=== PATIENT | male | born 2000 | race Caucasian/White ===

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

== ENCOUNTER → 2022-02-15 15:10 | Outpatient (CLI) | payer OTHER, SELFPAY ==
--- NOTE | 2022-02-15 15:22 | ECG_ITS ---
APPROVED REPORT Exam: Resting ECG HR:67 bpm ECG Measurements Heart Rate 67 AXES MD 132 P 59 QRSd 95 QRS 89 QT 367 T 46 QTc 382 Conclusion SINUS RHYTHM WITH SINUS ARRHYTHMIA NORMAL ECG UNCONFIRMED REPORT Electronically signed by : Frank Prieto MD 02/15/2022 20:18:21
--- NOTE | 2022-02-15 15:31 | XR_ITS ---
FINAL REPORT CLINICAL HISTORY: foot pain FINDINGS: LEFT CALCANEUS 2 views were obtained. There is no acute fracture or dislocation. The joint spaces are intact. The subtalar joint is negative. There is no soft tissue abnormality. IMPRESSION: No acute bony abnormality. Reviewed, Interpreted and Dictated by Pedro Soriano MD Transcribed by Swetha Luna Authenticated and [facility]
--- NOTE | 2022-02-15 15:31 | XR_ITS ---
FINAL REPORT CLINICAL HISTORY: foot pain FINDINGS: LEFT FOOT Three views of the left foot demonstrate no acute fracture or dislocation. There are postoperative changes from fusion of the 1st tarsal metatarsal joint. The hardware appears unremarkable. The joint spaces are preserved. The soft tissues are unremarkable. IMPRESSION: Postoperative change as above with no acute bony abnormality. Reviewed, Interpreted and Dictated by Pedro Soriano MD Transcribed by Swetha Luna Authenticated and [facility]
--- NOTE | 2022-02-15 15:31 | XR_ITS ---
FINAL REPORT CLINICAL HISTORY: ankle pain COMPARISON: 07/19/2021 FINDINGS: LEFT ANKLE Three views of the left ankle were obtained. There is no acute fracture or dislocation. The joint spaces and mortise are intact. There is no soft tissue abnormality. IMPRESSION: No acute bony abnormality. Reviewed, Interpreted and Dictated by Pedro Soriano MD Transcribed by Swetha Luna Authenticated and [facility]
[2022-02-15 16:35] LABS: Basophils # 0.1 K/mm3 (0-0.2); Basophils % 3.6 % (0.1-2.0); Eosinophils # 0.3 K/mm3 (0.0-0.4); Eosinophils % 6.5 % (0.1-12.0); Hematocrit 50.4 % (42.0-52.0); Hemoglobin 15.9 g/dL (14.1-18.0); Lymphocytes # 1.1 K/mm3 (0.7-4.5); Lymphocytes % 26.1 % (10-50); Mean Corpuscular HGB Conc 31.5 g/dL (31.8-35.4); Mean Corpuscular Hemoglobin 33.8 pg (27.0-31.2); Mean Corpuscular Volume 107.5 fl (80-94); Mean Platelet Volume 8.6 fl (7.4-10.4); Monocytes # 0.4 K/mm3 (0.1-1.0); Monocytes % 10.4 % (1.7-9.3); Neutrophils # 2.2 K/mm3 (1.8-7.8); Neutrophils % 53.5 % (37.0-80.0); Platelet Count 297 K/mm3 (142-424); Red Blood Count 4.69 M/mm3 (4.60-6.20); Red Cell Distribution Width 12.6 % (11.5-17.5); White Blood Count 4.1 K/mm3 (4.5-13.0)
[2022-02-15 16:43] LABS: Alanine Aminotransferase 30 U/L (12-78); Albumin Level 4.8 g/dl (3.5-5.0); Albumin/Globulin Ratio 2.1 (1.1-1.8); Alkaline Phosphatase 58 U/L (38-126); Anion Gap 18.8 mEq/L (5-15); Aspartate Amino Transferase 34 U/L (17-59); Bilirubin,Total 0.7 mg/dl (0.2-1.3); Blood Urea Nitrogen 6 mg/dl (9-20); Calcium 9.7 mg/dl (8.4-10.2); Carbon Dioxide 29 mmol/L (22.0-30.0); Chloride 95 mmol/L (98-107); Estimated Glomerular Filt Rate 109 ml/min (>60); GFR (African American) 132 ML/MIN (>60); Globulin 2.3 g/dL (1.3-3.2); Glucose 89 mg/dl (74-100); Potassium 3.8 mmoL/L (3.5-5.1); Sodium 139 mmol/L (136-145); Total Protein,Serum 7.1 g/dl (6.3-8.2)
== END ==
PROVIDERS: PCP Family Medicine; Visit Provider Podiatrist
DX: Z01.818 Encounter for other preprocedural examination (principal); M79.672 Pain in left foot; M20.12 Hallux valgus (acquired), left foot
CPT/HCPCS: 36415; 73610; 73630; 73650; 80053; 85025; 93005

== ENCOUNTER 2022-02-24 14:00 | Outpatient (RCR) | payer OTHER, SELFPAY ==
--- NOTE | 2022-01-10 14:36 | HMH.OTOPEV ---
OT Inpatient Evaluation Rehab OT Outpatient Eval Start: 01/10/22 14:22 Freq: Status: Active Protocol: Document 01/10/22 14:22 RMARSHALL (Rec: 01/10/22 14:[id number] E-signed By Do Sage, OT Outpatient Therapy Subjective History Subjective History Pt is a 21 year old male who reports to therapy for initial evaluation to right small finger. On 10/15/21 pt punched a wall resulting in a 5th MC fx (boxer's fx). Pt required an open reduction, percutaneous pinning right fifth metacarpal at [facility] in October. Pt had his pin removed on 12/21/21 and then he had a follow up with [facility] ortho who referred pt to OT. Pt demonstrates with significant decline in AROM of right small finger; specifically at MP joint. Pt also demonstrates with decreased coater strength and finger strength at right side. However, pt reports 0/10 pain at all times. Pt is right hand dominant. Pt will continue to be seen in order to address all deficits. STG R small finger AROM MP flex: 65 degrees MP Ext: -20 degrees PIP Flex: 90 degrees DIP flex: 65 degrees LTG R small finger AROM MP flex: 85 degrees MP Ext: -10 degrees PIP Flex: 100 degrees DIP flex: 80 degrees STG R hand coater strength: 60 lbs LTG R hand coater strength: 80 lbs Chief Complaint Stiff,Weakness,Decreased Audiologist Strength Symptoms Aggravated By Physical Activity,Lifting Prior Functional Limitations None Current Functional Limitations Reaching,Lifting,Housework, Sleeping Level of pain today (0-10) 0 Pain scale - at its best (0-10) 0 Pain scale - at its worst (0-10) 0 Wrist/Hand Eval Finger Range of Motion
--- NOTE | 2022-02-09 15:24 | HMH.OTOPEV ---
OT Inpatient Evaluation Rehab OT Outpatient Eval Start: 01/10/22 14:22 Freq: Status: Active Protocol: Document 01/10/22 14:22 RMARSHALL (Rec: [facility]/10/22 14:[id number] E-signed By Do Sage, OT Outpatient Therapy Subjective History Subjective History Pt is a 21 year old male who reports to therapy for initial evaluation to right small finger. On 10/15/21 pt punched a wall resulting in a 5th MC fx (boxer's fx). Pt required an open reduction, percutaneous pinning right fifth metacarpal at [facility] in October. Pt had his pin removed on 12/21/21 and then he had a follow up with [facility] ortho who referred pt to OT. Pt demonstrates with significant decline in AROM of right small finger; specifically at MP joint. Pt also demonstrates with decreased route aide strength and finger strength at right side. However, pt reports 0/10 pain at all times. Pt is right hand dominant. Pt will continue to be seen in order to address all deficits. STG R small finger AROM MP flex: 65 degrees MP Ext: -20 degrees PIP Flex: 90 degrees DIP flex: 65 degrees LTG R small finger AROM MP flex: 85 degrees MP Ext: -10 degrees PIP Flex: 100 degrees DIP flex: 80 degrees STG R hand route aide strength: 60 lbs LTG R hand route aide strength: 80 lbs Chief Complaint Stiff,Weakness,Decreased Policy Writer Sales Strength Symptoms Aggravated By Physical Activity,Lifting Prior Functional Limitations None Current Functional Limitations Reaching,Lifting,Housework, Sleeping Level of pain today (0-10) 0 Pain scale - at its best (0-10) 0 Pain scale - at its worst (0-10) 0 Wrist/Hand Eval Finger Range of Motion
== END 2022-02-24 14:05 | disposition home or self-care (01) ==
LOC: OT 14:00
PROVIDERS: PCP Family Medicine; Visit Provider Orthopaedic Surgery
DX: S62.336D Displaced fracture of neck of fifth metacarpal bone, right hand, subsequent encounter for fracture with routine healing (principal)
CPT/HCPCS: 97010; 97014; 97035; 97110; 97140; 97164; G0283

== ENCOUNTER 2022-03-02 07:29 | Day surgery (SDC) | payer OTHER, SELFPAY ==
[2022-03-02] VITALS (12 sets, daily range): BP systolic 115–147; BP diastolic 64–88; PULSE 74–89; RESP 12–18; TEMP 36.6–43; O2SAT 95–100; BMI 47.2
--- NOTE | 2022-03-02 | XR_ITS ---
FINAL REPORT CLINICAL HISTORY: lt foot surgery in OR 1.02 fluoro time FINDINGS: FLUORO TIME PROCEDURE: Fluoroscopy in the operating room. FINDINGS: Fluoroscopy time was provided by the radiology department for the clinical service. 2 films were obtained. Fluoroscopy exposure time: 1.02 minute IMPRESSION: See above Reviewed, Interpreted and Dictated by Jace Arias III, MD Transcribed by Swetha Luna Authenticated and [facility]
--- NOTE | 2022-03-02 08:45 | EXP.OP.NOTE ---
Date of procedure: 03/02/22 Pre-op Diagnosis:: Left hallux valgus Left pes planus Left posterior tibial tendonitis Left achilles tendonitis Post-op Diagnosis:: Same Procedure performed:: Left foot: hardware removal Tomasz ostetomy Modified Alvarado bunionectomy w/ 1st MPJ capsulotomy Synovectomy Rashid calcaneal osteotomy Gastroc recession Allograft Surgeon:: Shannon Mcleod DPM NURSING AGENCY MANAGER:: Juvenal Santa Anesthesia: GETA and regional (L pop nerve block) Estimated blood loss (mL): 10 Clinical Note:: Patient is a 21-year-old male with flatfoot deformity who had a left Lapidus bunionectomy with PT tendon debridement and repair, gastrocnemius recession on 08/07/2019. Patient had some hallux malleus and reports popping and scar tissue around the first MPJ. Previous treatment has consisted of surgery and conservative care. The patient has tried modification of shoe gear, taping, strapping, inserts, ice elevation, NSAIDs, diagnostic block. X-rays and CT scans show prior fusion site healed with no evidence of nonunion. After a long discussion with the patient in regards to the conservative versus surgical treatment for the bunion/flatfoot deformity, the patient has elected to proceed with surgery because they have failed conservative treatment and continue to have pain and worsening symptoms affecting daily activities. The patient has been instructed on the planned procedure, all risk versus benefits of the procedure to include bleeding, infection, nerve and blood vessel damage, need for further surgery, delay in healing of soft tissue or bone, failure of bones to heal, non-union, mal-union, prolonged pain and recovery, prolonged swelling, CRPS/RSD, DVT and anesthetic complications. No guarantees were given. All questions fully answered. The patient verbalized understanding and agreed to proceed with surgery. Written consent was obtained. Operative findings:: Flat deformity with equinus noted. Hardware intact to the left Lapidus bunionectomy site. First metatarsal cuneiform joint fused. No evidence of nonunion or infection. Screw holes debrided and backfilled with allograft. First MPJ had synovitis noted. There was an osteochondral defect noted to the first metatarsal head. Some significant scarring of the previous surgical site. Modifier: This case took approximately 30 minutes longer than normal due to scar tissue, synovitis warranting a more extensive debridement. Operative note:: On this date and time, the patient was deemed an appropriate surgical candidate. With informed consent signed, the patient was taken to the operating theater. The patient was positioned supine. General anesthesia was induced. Tourniquet was applied to the right thigh. The lower extremity was prepped and draped in normal sterile fashion. IV Ancef given. Left foot hardware removal, synovectomy: Attention was directed to the first ray where previous incision was noted and dissection was performed full-thickness to the level of the hardware overlying the first metatarsal cuneiform joint. A plate and 6 screws were removed in total without complication. The Lapidus bunionectomy site was evaluated and noted to be fused. No signs of infection. Synovitic tissue was debrided with 15 blade. A piece of the first metatarsal was removed and sent for pathology specimen. Wound was flushed with saline. Allograft was used to fill and the screw holes. Left Rashid calcaneal osteotomy: The tourniquet was inflated at 250 mmHg. Attention was directed to the lateral foot where the calcaneocuboid joint was mapped out under intraoperative fluoroscopy. The incision was made longitudinally superior but in line with the peroneal tendons. Dissection was carried through skin to subcutaneous tissue with care taken to maintain surgical hemostasis and safely retract neurovascular structures. The extensor digitorum brevis muscle belly was identified and reflected off the calcaneus superiorly. The peroneal tendons were iden
--- NOTE | 2022-03-02 10:15 | SUR.OPER ---
1013-family updated at this time
--- NOTE | 2022-03-02 11:06 | EXP.ANES.CKL ---
[facility] Disclaimer: The information contained in this section may have been updated after the patient was seen, as this information can be updated by other users. Medical History (Updated 03/02/22 @ 07:50 by Danilo Keyes RN) Foot fracture Hand fracture No significant past medical history Surgical History (Updated 03/02/22 @ 07:50 by Danilo Keyes RN) History of foot surgery History of hand surgery Family History (Updated 03/02/22 @ 07:51 by Danilo Keyes RN) Other No significant family history Social History (Updated 03/02/22 @ 07:52 by Danilo Keyes RN) Smoking Status: Current every day smoker tobacco type: e-cigarettes alcohol intake: never substance use type: denies use and marijuana current occupational status: employed and student Travel in the last 8 weeks: None household members: family housing: house number of children: 0 caffeine: Yes [facility] Anesthesia Checklist Patient Identification Patient Identification: Verbal (Name & ) Structural Data Admitted From: Home Planned Operative Procedure/s: orif l foot Consent for Planned Operative Procedure(s) Verified: Yes NPO Status Verified Time NPO: 00:00 Additional verifications Anesthesia Reactions: No Hx Blood Transfusions: No Blood Transfusion Reaction: No Airway Assessment C-Spine Mobility Assessed: Yes TMJ Mobility Assessed: Yes Dentition: Good Dentition Neurological Assessment Level of Consciousness: Awake, Alert and Appropriate Anesthesia Plan Anesthesia Risk discussed: Yes Anesthesia Plan: Verified ASA Class: II Anesthesia Type: General w/block
--- NOTE | 2022-03-02 12:28 | SUR.OPER ---
1227-family updated at this time
--- NOTE | 2022-03-02 12:30 | XR_ITS ---
FINAL REPORT CLINICAL HISTORY: Post op bunion HWR, flatfoot recon FINDINGS: LEFT FOOT Three views of the left foot were obtained. A splint obscures some of the detail. There are postoperative changes in the 1st proximal phalanx with a staple present. The soft tissues are unremarkable. IMPRESSION: Postoperative changes as above. Reviewed, Interpreted and Dictated by Jace Arias III, MD Transcribed by Swetha Luna Authenticated and . [facility]
--- NOTE | 2022-03-02 12:39 | P.PNANES_ITS ---
[facility] Anesthesia Record Part I Anesthesia Record I Intake, IV Amount: 1,400 Estimated blood loss (mL): 0 Urine output (mL): 0 Blood Pressure: 133/75 SaO2: 98 Pulse Rate: 87 Respiratory Rate: 12 Temperature: 99.5 F Patient is:: Awake and Stable Stable to PACU at:: 12:35
--- NOTE | 2022-03-02 13:19 | SUR.PHASEI ---
1318 radiology at bedside
--- NOTE | 2022-03-02 13:31 | SUR.PHASEI ---
1320 called and gave detailed report to Cinthya Calles RN 1325 transported via stretcher to post op. vital signs stable. denies pain at this time. left in stable condition with Colin Salvador RN at bedside.
--- NOTE | 2022-03-04 11:17 | EXP.ANES.II ---
[facility] Anesthesia Record Part II Anesthesia Record Part II Discharge Time: 13:05 Destination: Outpatient Procedures PACU nurse assessment reviewed?: Yes Patient Condition:: Good Anesthesia Complications:: None Swallowing reflex intact?: Yes Cyanosis?: No Blood Pressure: 118/66 Pulse Rate: 75 Temperature: 99 F Mental Status: Alert & Oriented Pain level:: 0 Nausea and/or vomitting:: None Intake, IV Amount: 2,000
[2022-03-04 11:18] VITALS: BP 118/66; PULSE 75; TEMP 37.2
== END 2022-03-02 13:56 | disposition home or self-care (01) ==
PROVIDERS: PCP Family Medicine; Visit Provider Podiatrist
PROC: (CPT 15275; principal; 2022-03-02 08:45)
DX: M21.612 Bunion of left foot (principal); M20.12 Hallux valgus (acquired), left foot; M76.62 Achilles tendinitis, left leg; M77.42 Metatarsalgia, left foot; M21.862 Other specified acquired deformities of left lower leg; M24.575 Contracture, left foot
CPT/HCPCS: 15275; 20680; 27687; 28300; 28298; 73620; 73630; 76000; 96374; C1762; C9399; J2405; Q4211

== ENCOUNTER → 2022-03-11 13:04 | Outpatient (CLI) | payer OTHER, SELFPAY ==
--- NOTE | 2022-03-11 13:06 | XR_ITS ---
FINAL REPORT CLINICAL HISTORY: rt hand fracture follow up COMPARISON: December 2021 FINDINGS: 3 views of the right hand were obtained. There has been interval further healing of the distal 5th metacarpal fracture. The joint spaces are intact. There is no soft tissue abnormality. IMPRESSION: Interval further healing of distal 5th metacarpal fracture. Reviewed, Interpreted and Dictated by Jace Arias III, MD Transcribed by Aj Mendez Authenticated and [facility]
== END ==
PROVIDERS: PCP Family Medicine; Visit Provider Orthopaedic Surgery
DX: S62.306A Unspecified fracture of fifth metacarpal bone, right hand, initial encounter for closed fracture (principal)
CPT/HCPCS: 73130

== ENCOUNTER → 2022-03-28 11:30 | Outpatient (CLI) | payer OTHER, SELFPAY ==
--- NOTE | 2022-03-28 11:34 | XR_ITS ---
FINAL REPORT CLINICAL HISTORY: post op COMPARISON: January and February of 2022 FINDINGS: 3 views of the left foot were obtained. There is no acute fracture or dislocation. There is postoperative change of the 1st proximal phalanx with a stable. There is postoperative change of the 1st and 2nd metatarsals and medial cuneiform. There is postoperative change of the distal calcaneus. IMPRESSION: Stable postoperative changes as above. Reviewed, Interpreted and Dictated by Jace Arias III, MD Transcribed by Aj Mendez Authenticated and [facility]
== END ==
PROVIDERS: PCP Family Medicine; Visit Provider Podiatrist
DX: M79.672 Pain in left foot (principal); M20.12 Hallux valgus (acquired), left foot; M21.42 Flat foot [pes planus] (acquired), left foot
CPT/HCPCS: 73630

== ENCOUNTER → 2022-04-22 13:59 | Outpatient (CLI) | payer OTHER, SELFPAY ==
--- NOTE | 2022-04-22 14:08 | XR_ITS ---
FINAL REPORT CLINICAL HISTORY: post op - weight bearing views COMPARISON: 03/28/2022 FINDINGS: LEFT FOOT Three views of the left foot demonstrate no acute fracture or dislocation. There are postoperative changes in the 1st metatarsal and 1st proximal phalanx as well as the distal calcaneus. The changes are visually stable. The joint spaces are preserved. The soft tissues are unremarkable. IMPRESSION: Postoperative changes which are visually stable. No acute bony abnormality. Reviewed, Interpreted and Dictated by Jace Arias III, MD Transcribed by Swetha Luna Authenticated and [facility]
== END ==
PROVIDERS: PCP Family Medicine; Visit Provider Podiatrist
DX: M20.12 Hallux valgus (acquired), left foot (principal); G89.18 Other acute postprocedural pain
CPT/HCPCS: 73630

== ENCOUNTER → 2022-05-30 15:35 | Outpatient (CLI) | payer OTHER, SELFPAY ==
--- NOTE | 2022-05-30 15:38 | XR_ITS ---
FINAL REPORT CLINICAL HISTORY: Foot Pain, sx feb 2022 COMPARISON: April 22, 2022 FINDINGS: 3 views of the left foot were obtained. There is no acute fracture or dislocation. There is postoperative change in the calcaneus and 1st proximal phalanx. There is postoperative change in the proximal 1st and 2nd metatarsals. There appears to be healing of the calcaneal osteotomy. IMPRESSION: Postoperative changes as above. Reviewed, Interpreted and Dictated by Jace Arias III, MD Transcribed by Aj Mendez Authenticated and [facility]
== END ==
PROVIDERS: PCP Family Medicine; Visit Provider Podiatrist
DX: M79.672 Pain in left foot (principal)
CPT/HCPCS: 73630

== ENCOUNTER 2023-06-26 15:31 | Outpatient (CLI) | payer OTHER, SELFPAY ==
--- NOTE | 2023-06-26 15:35 | XR_ITS ---
FINAL REPORT CLINICAL HISTORY: foot pain states having pain/ache in left foot FINDINGS: Left foot Three views were obtained. There is no acute fracture or dislocation. The joint spaces appear normal. There are postoperative changes in the distal 1st metatarsal, 1st proximal phalanx and calcaneus. IMPRESSION: Postsurgical changes without acute bony abnormality. Reviewed, Interpreted and Dictated by Jace Arias III, MD Transcribed by Judy Trejo Authenticated and [facility] [place] [place]
== END 2023-06-26 23:59 ==
LOC: RAD 15:32
PROVIDERS: PCP Physician Assistant; Visit Provider Podiatrist
DX: M79.672 Pain in left foot (principal)
CPT/HCPCS: 73630

== ENCOUNTER 2023-07-11 17:28 | Outpatient (CLI) | payer OTHER, SELFPAY ==
--- NOTE | 2023-07-11 17:33 | MR_ITS ---
FINAL REPORT CLINICAL HISTORY: Evaluate Plantar soft tissue mass FINDINGS: Multi planar MR imaging of the left foot was obtained with and without contrast. The Achilles tendon is intact. There is a marker over the clinical abnormality along the medial plantar aspect of the foot. 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 There is mild enhancement within the structure well seen on image 25 of series 10. Magnetic susceptibility artifact is seen at the 1st tarsometatarsal joint and proximal portion of the 1st proximal phalanx consistent with prior surgery. 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 Reviewed, Interpreted and Dictated by Maninder Welsh MD Transcribed by Judy Trejo Authenticated and [facility]
[2023-07-11] MEDS: SODIUM CHLORIDE 0.9% 10ML SYR (RAD ONLY) 10 ML IV (19:38)
[2023-07-11] MEDS: GADOTERIDOL INJ 17ML SYRINGE 14 ML IV (19:38)
== END 2023-07-11 23:59 | disposition home or self-care (01) ==
LOC: RAD 17:29
PROVIDERS: PCP Physician Assistant; Visit Provider Podiatrist
DX: M79.672 Pain in left foot (principal); R22.42 Localized swelling, mass and lump, left lower limb
CPT/HCPCS: 73720; A9576